=== PATIENT | female | born 1985 | race Caucasian/White ===

== ENCOUNTER 2016-10-07 06:16 | Inpatient (IN) | payer BC ==
[2016-10-07] VITALS (8 sets, daily range): BP systolic 104–120; BP diastolic 52–75
[~2016-10-07] VITALS: Ht 165.1 cm; Wt 83.0 kg
[~2016-10-07 06:16] MED LIST: PREDNISONE20 MG PO; PRENATAL TABLE1 EACH PO; VENTOLIN HFA18 GM IH; ZITHROMAX Z-PA250 MG PO
[2016-10-07 06:55] LABS: EOSINOPHIL (%) 1.3 % (0-5); EOSINOPHIL COUNT 0.1 K/uL (0-0.3); HEMATOCRIT 35.4 % (36.0-46.0); IMMATURE GRANULOCYTE (%) 0.6 % (0.0-0.7); IMMATURE GRANULOCYTE COUNT 0.1 K/uL; INSTRUMENT ABS NEUTROPHIL CT 5.4 K/uL; LYMPHOCYTE COUNT 2.1 K/uL (1.0-2.8); MCH 27.5 PG (29.0-34.0); MCHC 33.1 G/DL (30.0-36.0); MCV 83.3 FL (83-99); MEAN PLAT.VOLUME 9.4 uM^3 (9.5-12.4); MONOCYTE COUNT 0.6 K/uL (0-0.8); NEUTROPHIL (%) 65.7 % (45-76); NEUTROPHIL COUNT 5.4 K/uL (1.8-6.4); PLATELET COUNT 244 K/uL (156-360); RBC DIS.WIDTH-CV 13.1 % (11.8-14.6); RBC DIS.WIDTH-SD 39.7 % (39-53); RED BLOOD COUNT 4.25 M/uL (3.80-5.20); WHITE BLOOD COUNT 8.2 K/uL (4.1-10.2)
[2016-10-08 03:50] VITALS: BP 94/52
[2016-10-08 07:21] LABS: EOSINOPHIL (%) 0.8 % (0-5); EOSINOPHIL COUNT 0.1 K/uL (0-0.3); HEMATOCRIT 28.5 % (36.0-46.0); IMMATURE GRANULOCYTE (%) 0.6 % (0.0-0.7); IMMATURE GRANULOCYTE COUNT 0.1 K/uL; INSTRUMENT ABS NEUTROPHIL CT 6.4 K/uL; LYMPHOCYTE COUNT 1.9 K/uL (1.0-2.8); MCH 27.2 PG (29.0-34.0); MCHC 31.9 G/DL (30.0-36.0); MCV 85.3 FL (83-99); MONOCYTE (%) 6.3 % (3-12); MONOCYTE COUNT 0.6 K/uL (0-0.8); NEUTROPHIL (%) 71.3 % (45-76); NEUTROPHIL COUNT 6.4 K/uL (1.8-6.4); RBC DIS.WIDTH-CV 13.3 % (11.8-14.6); RBC DIS.WIDTH-SD 41.5 % (39-53)
[2016-10-08 07:30] VITALS: BP 110/51
[2016-10-08 07:30] LABS: RED BLOOD COUNT 3.34 M/uL (3.80-5.20)
[2016-10-08 09:18] LABS: MEAN PLAT.VOLUME 10.1 uM^3 (9.5-12.4); PLAT.SUFFICIENCY DECREASED
[2016-10-08 09:51] LABS: PLATELET COUNT 156 K/uL (156-360)
[2016-10-08 11:00] VITALS: BP 107/56
[2016-10-08 16:00] VITALS: BP 116/78
[2016-10-08 19:00] VITALS: BP 119/65
[2016-10-08 22:48] VITALS: BP 106/56
[2016-10-09 02:36] VITALS: BP 116/58
[2016-10-09 07:44] VITALS: BP 107/58
[2016-10-09] MEDS ORDERED: IBUPROFEN800 MG PO (08:30)
[2016-10-09] MEDS ORDERED: FERROUS SULFAT325 MG PO (08:30)
[2016-10-09] MEDS ORDERED: ENDOCET 5-3251 EACH PO (08:30)
[2016-10-09 14:44] VITALS: BP 107/53
== END 2016-10-09 17:54 | disposition home or self-care (01) | DRG 765 ==
LOC: 2WEST 06:16 → 2SOUTH 08:31 → 2WEST 10-09 17:54
PROVIDERS: Obstetrics & Gynecology
PROC: 10D00Z1 Extraction of Products of Conception, Low, Open Approach (ICD-10-PCS; principal; 2016-10-07)
DX: O34.211 Maternal care for low transverse scar from previous cesarean delivery (principal); D62 Acute posthemorrhagic anemia; Z37.0 Single live birth; Z3A.39 39 weeks gestation of pregnancy; O12.04 Gestational edema, complicating childbirth; O99.02 Anemia complicating childbirth; O09.892 Supervision of other high risk pregnancies, second trimester; Z14.1 Cystic fibrosis carrier; Z87.891 Personal history of nicotine dependence
CPT/HCPCS: 85025; 86850; 86900; 86901; J0690; J1200; J1885; J2274; J3010; J7120